=== PATIENT | female | born 1955 | race Caucasian/White ===

== ENCOUNTER 2019-01-22 21:19 | Emergency (ER) | payer OTHER ==
[~2019-01-22] VITALS: Ht 160 cm; Wt 68.3 kg
[2019-01-22 21:55] VITALS: Ht 160 cm; Wt 68.3 kg
[2019-01-23 02:11] VITALS: BP 156/61; PULSE 57; RESP 18
== END 2019-01-23 04:16 | disposition home or self-care (01) ==
LOC: E/R 21:19
DX: I10 Essential (primary) hypertension (principal)
CPT/HCPCS: 80048; 84484; 85025; 93005